=== PATIENT | male | born 1965 | race Caucasian/White ===

== ENCOUNTER 2020-06-07 18:07 | Emergency (ER) | payer OTHER ==
[2020-06-07] MEDS ORDERED: DIPH/PERTUSS(ACELL)/TETANUS VAC/PF 0.5 ML SYR (>=10YO) IM ONE (18:25)
[2020-06-07] MEDS: LIDOCAINE 1% INJ-PF (10 MG/ML) 30 ML SDV INJ ONE ×2 (18:41→19:11)
[2020-06-07] MEDS ORDERED: LIDOCAINE 1%/EPINEPHRINE INJ 20 ML VIAL INJ ONE (18:45)
--- NOTE | 2020-06-07 19:14 | ER Document Report ---
ED Wound - General Chief Complaint: Laceration Stated Complaint: RIGHT HAND INJURY Time Seen by Provider: 06/07/20 18:16 Primary Care Provider: MYA COLVIN MD [COMMUNITY BASED STAFF] - Follow up as needed SHOAIB ADAMS MD [ACTIVE STAFF] - Follow up as needed - [facility] Notes: 55-year-old male presents to the emergency room with a laceration between his second and third phalanges on his right after he was washing dishes and a dish broke and lacerated his skin approximately an hour ago. Unsure of his last tetanus. Denies being on any blood thinners. Denies any numbness or tingling to bilateral extremities. No [id number] medications have been tried for pain control. Reports pain is 2 out of 5, throbbing achy. Able to stop bleeding with compression. Denies any fevers or chills. Denies any prior injury to his bilateral hands. Denies numbness or tingling in bilateral upper or lower extremities equally, muscle paralysis, weakness in bilateral upper or lower extremities equally or rash. MEDICATIONS: I agree with the patient medications as charted by the RN. ALLERGIES: I agree with the allergies as charted by the RN. PAST MEDICAL HISTORY/PAST SURGICAL HISTORY: Reviewed and agree as charted by RN. SOCIAL HISTORY: Reviewed and agree as charted by RN. FAMILY HISTORY: No significant familial comorbid conditions directly related to patient complaint EXAM: Reviewed vital signs as charted by RN. REVIEW OF SYSTEMS:reviewed vital signs by RN CONSTITUTIONAL : Denies fever, chills, or sweats. Denies recent illness. EENT: Denies eye, ear, throat, or mouth pain or symptoms. Denies nasal or sinus congestion or discharge. Denies throat, tongue, or mouth swelling or difficulty swallowing. CARDIOVASCULAR: Denies chest pain. Denies palpitations or racing or irregular heart beat. Denies ankle edema. RESPIRATORY: Denies cough, cold, or chest congestion. Denies shortness of breath, difficulty breathing, or wheezing. GASTROINTESTINAL: Denies abdominal pain or distention. Denies nausea, vomiting, or diarrhea. Denies blood in vomitus, stools, or per rectum. Denies black, tarry stools. Denies constipation. GENITOURINARY: Denies difficulty urinating, painful urination, burning, frequency, blood in urine, or discharge. MUSCULOSKELETAL: Denies back or neck pain or stiffness. Denies joint pain or swelling. SKIN: laceration to right 3rd finger webbing. Denies rash, lesions or sores. HEMATOLOGIC : Denies easy bruising or bleeding. LYMPHATIC: Denies swollen, enlarged glands. NEUROLOGICAL: Denies confusion or altered mental status. Denies passing out or loss of consciousness. Denies dizziness or lightheadedness. Denies headache. Denies weakness or paralysis or loss of use of either side. Denies problems with gait or speech. Denies sensory loss, numbness, or tingling. Denies seizures. PSYCHIATRIC: Denies anxiety or stress. Denies depression, suicidal ideation, or homicidal ideation. ALL OTHER SYSTEMS REVIEWED AND NEGATIVE. Dictation was performed using [employer] voice recognition software PHYSICAL EXAMINATION: GENERAL: Well-appearing, well-nourished and in no acute distress. HEAD: Atraumatic, normocephalic. EYES: Pupils equal round and reactive to light, extraocular movements intact, sclera anicteric, conjunctiva are normal. ENT: Nares patent, oropharynx clear without exudates. Moist mucous membranes. NECK: Normal range of motion, supple without lymphadenopathy LUNGS: Breath sounds clear to auscultation bilaterally and equal. No wheezes rales or rhonchi. HEART: Regular rate and rhythm without murmurs ABDOMEN: Soft, nontender, nondistended abdomen. No guarding, no rebound. No masses appreciated. Musculoskeletal: Normal range of motion, no pitting or edema. No cyanosis. NEUROLOGICAL: Cranial nerves grossly intact. Normal speech, normal gait. Normal sensory, motor exams PSYCH: Normal mood, normal affect. SKIN: Warm, Dry, normal turgor, no rashes or lesions noted. laceration to the base of the right 3rd metacarpal phalangeal space between the second and third phalanges approximately 1 cm laceration. Circular Shear Operator + 2 BUE equally. radial pulses + 2 BUE equally. Negative kanavels sign. No vascular compromise.No body crepitus. no pain with opposition, flexion, extension, abduction and adduction on right. Motor and sensory function of ulnar, radial, medial nerves intact bilaterally and equally. strength 5/5 in BUE equally. - Related Data Allergies/Adverse Reactions: No Known Allergies Allergy (Unverified 06/07/20 18:14) Past Medical History - General Information source: Patient - Social History Smoking Status: Never Smoker Chew tobacco use (# tins/day): No Frequency of alcohol use: None Drug Abuse: None Family History: Reviewed & Not Pertinent Patient has homicidal ideation: No Physical Exam - Vital signs Vitals: Temp Pulse Resp BP Pulse Ox 98.4 F 77 18 149/80 H 100 06/07/20 18:12 06/07/20 18:12 06/07/20 18:12 06/07/20 18:12 06/07/20 18:12 Course - Re-evaluation Re-evalutation: 06/07/20 19:20 Afebrile vital stable no distress. Nursing notes reviewed. X-ray of right hand negative for any foreign body, fracture, dislocation. Verbal consent obtained from patient for laceration repair. please see procedure note for laceration repair. Patient tolerated procedure without incident. Patient placed in a finger splint to prevent stitches from ripping. Please see procedure note for splint procedure. Will place patient on prophylactic antibiotics of Keflex twice a day for 5 days. Discussed with patient that sutures need to be removed in 7 to 10 days. Do not immerse in water, you can take Tylenol and ibuprofen for pain control. Tetanus was updated today. Follow-up with your primary care provider within the next 24 to 48 hours for wound check if needed. After performing a Medical Screening Examination, I estimate there is LOW risk for OPEN FRACTURE, COMPARTMENT SYNDROME, TENDON RUPTURE, ACUTE NEUROVASCULAR INJURY, or RETAINED FOREIGN BODY, thus I consider the discharge disposition reasonable. Also, there is no evidence or peritonitis, sepsis, or toxicity. I have reevaluated this patient multiple times and no significant life threatening changes are noted. The patient and I have discussed the diagnosis and risks, and we agree with discharging home with close follow-up with the understanding that symptoms and presentations can change. We also discussed returning to the Emergency Department immediately if new or worsening symptoms occur. We have discussed the symptoms which are most concerning (e.g., changing or worsening pain, fever, numbness, weakness, cool or painful digits) that necessitate immediate return. - Vital Signs Vital signs: Temp Pulse Resp BP Pulse Ox 98.2 F 80 18 120/74 99 06/07/20 19:23 06/07/20 19:23 06/07/20 19:23 06/07/20 19:23 06/07/20 19:23 Procedures - Laceration/Wound Repair Right Dorsal Finger 3rd digit Time completed: 19:12 Wound length (cm): 1 - cm Wound's Depth, Shape: Linear Laceration pre-procedure: Sterile PPE donned, Sterile drapes applied, Shur-Clens applied Anesthetic type: 1% Lidocaine w/epi Wound explored: Clean Wound Debrided: Minimal Wound Repaired With: Sutures - #5 simple sutures Suture Size/Type: 5:0 Layer Closure?: No Post-procedure wound care: Splint applied - Consent by patient given to right 3rd finger splint,. cms intact, sensory motor function intact in bilateralupper extremities prior to splint application plastic finger splint placed without incident. cms intact 20 minutes after splint application. Splint is in good alignment. Bilateral upper extremities with motor and sensory function intact 20 minutes after application. Pt stated that splint felt comfortable. Post-procedure NV exam normal: Yes Complications: No Notes: 06/07/20 19:14 Verbal consent given by patient to perform laceration repair. Site cleaned with high-pressure irrigation normal saline 200 mL. No foreign body seen on exploration of wound. 3 mL of lidocaine 1% with epi at interphalangeal web between the second and third phalanges on the right wound well approximated with 5 simple sutures. Patient tolerated procedure without incident. Please see splint procedure Discharge - Discharge Clinical Impression: Laceration of right hand Qualifiers: Encounter type: initial encounter Foreign body presence: without foreign body Qualified Code(s): S61.411A - Laceration without foreign body of right hand, initial encounter Condition: Stable Disposition: HOME, SELF-CARE Instructions: Antibiotic Ointment Protection ([facility]), Laceration Care ([facility]), Prophylactic Antibiotic ([facility]), Tetanus Immunization Given ([facility]) Additional Instructions: He received 5 simple sutures today. Your tetanus was updated today. Please avoid submerging in water. You can alternate between Tylenol and ibuprofen for pain control. Your sutures need to be removed in 7 to 10 days. You were placed in a finger splint to help immobilize your sutures today do not care. Please take prophylactic antibiotic twice a day for 5 days. If you notice any redness, warmth to touch, purulent drainage, please go to your primary care for reevaluation. X-ray was negative for any foreign body or fracture. Keep hand elevated above level of heart if you have any throbbing pain. Follow-up with your primary care provider within 3 days for wound check if needed, otherwise removed in 7 to 10 days. Return immediately for any new or worsening symptoms. Follow up with primary care provider, call tomorrow to make followup appointment. Prescriptions: Cephalexin Monohydrate [Keflex 500 mg Capsule] 500 mg PO BID #10 capsule Forms: Return to Work Referrals: MYA COLVIN MD [COMMUNITY BASED STAFF] - Follow up as needed SHOAIB ADAMS MD [ACTIVE STAFF] - Follow up as needed
--- NOTE | 2020-06-07 19:16 | RADIOLOGY REPORT (SQ) ---
EXAM DESCRIPTION: HAND RIGHT 3 VIEWS IMAGES COMPLETED DATE/TIME: 06/07/2020 6:54 pm REASON FOR STUDY: hand/finger laceration COMPARISON: None. EXAM PARAMETERS: NUMBER OF VIEWS: Three views. TECHNIQUE: AP, lateral and oblique radiographic images acquired of the right hand. LIMITATIONS: None. FINDINGS: MINERALIZATION: Normal. BONES: No acute fracture or dislocation. Degenerative changes are noted at the 1st metacarpophalange al joint. SOFT TISSUES: No soft tissue swelling. No radiopaque foreign body. IMPRESSION: No radiographic evidence for acute fracture at the right hand. TECHNICAL DOCUMENTATION: JOB ID: [id number] [employer]- All Rights Reserved Reading location - IP/workstation name: [facility]
[2020-06-07 19:24] VITALS: BP 120/74
== END 2020-06-07 19:23 | disposition home or self-care (01) ==
LOC: ER 18:07
DX: S61.411A Laceration without foreign body of right hand, initial encounter (principal); W25.XXXA Contact with sharp glass, initial encounter; Y93.G1 Activity, food preparation and clean up; Z23 Encounter for immunization
CPT/HCPCS: 99283; 73130; 90715; 12001; J3490